=== PATIENT | female | born 1995 | race Asian ===

== ENCOUNTER 2019-01-22 16:56 | Emergency (ER) | payer BC ==
[~2019-01-22] VITALS: Ht 162.6 cm; Wt 59.0 kg
[2019-01-22 16:56] VITALS: BP_SYST 135
--- NOTE | 2019-01-22 19:25 | NUR ---
Placed in room 8 . Placed on groundwater monitoring technician, blood pressure machine and pulse oximeter. To gown for exam. Side rails up. Report given Sameer GONSALVES by Yimi GONSALVES.
--- NOTE | 2019-01-22 19:40 | NUR ---
Rebecca Leonard CLEARANCE CUTTER bedside for Pt eval
[2019-01-22] MEDS ORDERED: IBUPROFEN 800 MG TABLET PO ONE (19:45)
[2019-01-22] MEDS ORDERED: MAG HYDROX/AL HYDROX/SIMETH 30 ML, DICYCLOMINE HCL 20 MG, LIDOCAINE VISCOUS 2% 15ML (PO... PO ONE ×3 (19:45)
--- NOTE | 2019-01-22 19:45 | NUR ---
Pt BIB family to ED C/O HAVING CHEST PAIN AND LEFT ARM PAIN NOW WITH BILATERAL SHOULDER PAIN WELL. NO OTHER COMPLAINTS AND OR INJURIES NOTED VSS NO S/S OF ACUTE DISTRESS. RESTING ON GURNEY RAILS UP
--- NOTE | 2019-01-22 19:50 | NUR ---
Flu swab sent to lab
[2019-01-22 20:30] VITALS: BP_SYST 124
--- NOTE | 2019-01-22 20:30 | NUR ---
Patient given written and verbal discharge instructions and verbalizes understanding. ER MD discussed with patient the results and treatment provided. Patient in stable condition. ID arm band removed. Rx of MOTRIN given. Patient educated on pain management and to follow up with PMD. Pain Scale 0/10 Opportunity for questions provided and answered. Medication side effect fact sheet provided.
== END 2019-01-22 20:30 | disposition home or self-care (01) ==
LOC: SED 16:56
DX: M79.631 Pain in right forearm (principal); M79.632 Pain in left forearm; R07.9 Chest pain, unspecified
CPT/HCPCS: 81025; 86710; 93005; 99284; J2001; 36415